=== PATIENT | female | born 1965 | race Caucasian/White ===

== ENCOUNTER 2023-01-05 10:47 | Emergency (ER) | payer MEDICAID ==
[2023-01-05] MEDS ORDERED: AMLODIPINE BES2.5 MG PO (11:01)
[2023-01-05 11:36] LABS: BASO # 0.03 K/mm3 (0.02-0.10); EOS # 0.07 K/mm3 (0.04-0.40); HEMOGLOBIN 14.2 g/dL (12.5-16.0); LYMPH# 0.93 K/mm3 (1.50-4.00); MEAN CELL VOLUME 96 fl (78-100); MEAN CORPUSCULAR HEMOGLOBIN 32 pg (27-31); MEAN CORPUSCULAR HGB CONC 33 g/dL (33-37); MEAN PLATELET VOLUME 9.4 fl (7.4-10.4); MONO # 0.56 K/mm3 (0.20-0.80); NEU # 5.23 K/mm3 (1.40-6.50); PLATELET COUNT 230 K/mm3 (130-400); RED CELL DISTRIBUTION WIDTH 11.7 % (11.5-14.5); WHITE BLOOD COUNT 6.8 K/mm3 (4.8-10.8)
[2023-01-05 11:42] LABS: ALBUMIN 4.1 g/dL (3.5-5.0); POTASSIUM 3.6 mmol/L (3.5-5.1)
[2023-01-05 11:43] LABS: CALCIUM 9.5 mg/dL (8.3-10.5)
[2023-01-05 11:44] LABS: TOTAL PROTEIN 7.6 g/dL (6.4-8.3)
[2023-01-05 11:46] LABS: TOTAL BILIRUBIN 0.5 mg/dL (0.2-1.2)
[2023-01-05 13:02] LABS: URINE APPEARANCE HAZY; URINE BILIRUBIN NEGATIVE (NEGATIVE); URINE BLOOD 250 ery/uL (NEGATIVE); URINE COLOR YELLOW; URINE GLUCOSE NEGATIVE (NEGATIVE); URINE KETONE NEGATIVE (NEGATIVE); URINE LEUKOCYTE ESTERASE NEGATIVE (NEGATIVE); URINE NITRATE NEGATIVE (NEGATIVE); URINE PROTEIN(semi-quant) 1+ (NEGATIVE); URINE UROBILINOGEN NORMAL (NORMAL)
[2023-01-05 13:03] LABS: URINE MUCUS PRESENT (NOT PRESENT)
[2023-01-05 14:00] VITALS: BP 143/84
== END 2023-01-05 13:58 | disposition home or self-care (01) ==
LOC: ED 10:47
PROVIDERS: Family Medicine
DX: R51.9 Headache, unspecified (principal); M48.02 Spinal stenosis, cervical region; Z86.69 Personal history of other diseases of the nervous system and sense organs; Z88.6 Allergy status to analgesic agent; Z28.310 Unvaccinated for COVID-19
CPT/HCPCS: J1885